=== PATIENT | female | born 1995 | race Caucasian/White ===

== ENCOUNTER → 2020-11-06 14:38 | Outpatient (CLI) | payer BC | END | disposition home or self-care (01) | LOC: D.MRI 14:30 | PROVIDERS: ATTEND Nurse Practitioner Family | DX: S62.002A Unspecified fracture of navicular [scaphoid] bone of left wrist, initial encounter for closed fracture (principal); M75.101 Unspecified rotator cuff tear or rupture of right shoulder, not specified as traumatic ==